=== PATIENT | female | born 1940 | race Caucasian/White ===

== ENCOUNTER 2023-03-30 08:43 | Outpatient (CLI) | payer MEDICARE, SELFPAY ==
--- NOTE | ~2023-03-30 | DEXA_ITS ---
Bone Density Report Name: NASIR GORDON Age: 83 Sex: Female Ethnicity: White Date of : 1940 Indication: postmenopausal; screening for osteoporosis; height loss; rheumatoid arthritis; Referring Provider: LIZ PHELAN Study: Bone densitometry was performed. Exam Date: March 30, 2023 Accession number: [id number] Bone Density: Region BMD T-score Z-score Classification AP Spine(L1-L4) 1.091 0.4 3.2 Normal Femoral Neck (Left) 0.656 -1.7 0.7 Osteopenia Total Hip (Left) 0.750 -1.6 0.7 Osteopenia Femoral Neck (Right) 0.719 -1.2 1.3 Osteopenia Total Hip (Right) 0.781 -1.3 1.0 Osteopenia Total Hip Mean 0.766 -1.5 0.9 Osteopenia World Health Organization criteria for BMD impression classify patients as: Normal (T-score at or above -1.0), Osteopenia (T-score between -1.0 and -2.5), or Osteoporosis (T-score at or below -2.5). 10-year Fracture Risk(1): Major Osteoporotic Fracture 19% Hip Fracture 5.8% Reported Risk Factors: [place] (), Neck BMD=0.656, BMI=26.9, rheumatoid arthritis (1) FRAX(R) Version 3.08. Fracture probability calculated for an untreated patient. Fracture probability may be lower if the patient has received treatment. Previous Exams: Region Exam Age BMD T-score BMD Change BMD Change Date g/cm2 vs Baseline vs Previous AP Spine (L1-L4) 03/30/2023 83 1.091 0.4 -0.012 (-1.1%) -0.012 (-1.1%) 03/14/2018 77 1.102 0.5 Total Hip(Left) 03/30/2023 83 0.750 -1.6 -0.089 (-10.7% -0.089 (-10.7% 03/14/2018 77 0.840 -0.8 Total Hip(Right) 03/30/2023 83 0.781 -1.3 -0.117 (-13.1% -0.117 (-13.1% 03/14/2018 77 0.898 -0.4 *Denotes significance at 95% confidence level, LSC for AP Spine = 0.022 g/cm2, LSC for Total Hip = 0.027 g/cm2 Clinical Information Provided by Patient: Has rheumatoid arthritis Has used the following medications: Vitamin D Has the following medical conditions: hypothyroidism Patient maximum height was 60.5 Menopause Age: 49 No regular weight bearing exercise Drinks caffeinated beverages Onset of menses at age 10 Number of children 4 Impression: The patient has low bone mass, based on the Left Femoral Neck T-score. The patient has an estimated ten-year risk of hip fracture of 5.8% and an estimated ten-year risk of major fracture of 19%, based on the WHO FRAX algorithm. The BMD for the Total Hip(Left) decreased, changing by -10.7% since the last DXA exam. The BMD for t
== END 2023-03-30 08:44 | disposition home or self-care (01) ==
PROVIDERS: PCP Family Medicine; Visit Provider Family Medicine
DX: Z78.0 Asymptomatic menopausal state (principal); M85.852 Other specified disorders of bone density and structure, left thigh; M85.851 Other specified disorders of bone density and structure, right thigh
CPT/HCPCS: 77080

== ENCOUNTER 2023-09-11 11:15 | Outpatient (CLI) | payer MEDICARE, SELFPAY ==
[2023-09-11 13:27] LABS: Thyroid Stimulating Hormone 0.908 uIU/mL (0.465-4.680)
== END 2023-09-11 11:16 | disposition home or self-care (01) ==
LOC: ANHLAB 11:16
PROVIDERS: PCP Family Medicine; Visit Provider Internal Medicine Hematology & Oncology
DX: E03.9 Hypothyroidism, unspecified (principal); E11.9 Type 2 diabetes mellitus without complications
CPT/HCPCS: 36415; 84443

== ENCOUNTER 2024-04-01 12:48 | Emergency (ER) | payer MEDICARE, SELFPAY ==
--- NOTE | ~2024-04-01 | XR_ITS ---
XR knee RT min 4V Ordering provider: Anisa Arias MD History: . RT KNEE PAIN AFTER FALL TODAY, MEDIAL BRUSING AND SWELLING . Comparison: September 28, 2004 FINDINGS: BONES: No acute fracture or dislocation. Osteopenia of the bones. JOINT SPACES: Calcifications seen in the medial and lateral menisci. Joint space is normal. SOFT TISSUES: Normal. IMPRESSION: No acute osseous abnormality right knee. Chondrocalcinosis. Reviewed, dictated and finalized at location A.
--- NOTE | ~2024-04-01 | XR_ITS ---
EXAMINATION: XR finger 3rd RT min 2V DATE: 04/01/2024 14:01 INDICATION: Right hand third digit pain. TECHNIQUE: 4 views of right hand third digit were obtained. COMPARISON: None. FINDINGS: Alignment is normal. There is a punctate calcification palmar to base of third distal phala nx. There is mild osteoarthritis of the third proximal interphalangeal joint and moderate osteoarthri tis of distal interphalangeal joint. IMPRESSION: 1. Punctate calcification palmar to base of third distal phalanx, which may be an acute avulsion frac ture or a chronic finding. 2. Polyarticular osteoarthritis. Reviewed, dictated and finalized at location A. IMPRESSION: 1. Punctate calcification palmar to base of third distal phalanx, which may be an acute avulsion fracture or a chronic finding. 2. Polyarticular osteoarthritis.
[2024-04-01 12:58] VITALS: BP 152/60; PULSE 87; RESP 16; TEMP 36.8; O2SAT 100
--- NOTE | 2024-04-01 13:34 | ED.LOWEXIN ---
HPI - Extremity Injury (Lower) General Chief Complaint: Extremity Injury, Lower Stated Complaint: Fall, Rt Knee pain Time Seen by Provider: 04/01/24 13:12 Source: patient and family Mode of arrival: ambulatory Limitations: no limitations History of Present Illness HPI Narrative: Patient presents with right knee pain and swelling after a fall. She is on warfarin/coumadin. No history of surgery or injury to this leg. She has not yet taken anything for pain. No paresthesias. She also notes she has arthritis and injured her right 3rd digit. Related Data Home Medications Medication Instructions Recorded Confirmed cholecalciferol (vitamin D3) 25 1,000 unit PO DAILY 06/22/19 03/30/24 mcg (1,000 unit) capsule (Vitamin D3) warfarin 2.5 mg tablet 2.5 mg PO HS 06/22/19 03/30/24 lactobacillus combination no.8 3 3,000 mmu cells PO DAILY 07/31/19 03/30/24 billion cell capsule (Adult Probiotic) famotidine 40 mg tablet 20 mg PO BID 11/25/23 03/30/24 Allergies Allergy/AdvReac Type Severity Reaction Status Date / Time omeprazole Allergy Unknown Unknown Verified 03/30/24 13:02 [facility] Past Medical History Medical History Afib (Unknown) Anticoagulation adequate with anticoagulant therapy (Unknown) Arthritis BMI 26.0-26.9,adult CKD (chronic kidney disease) stage 4, GFR 15-29 ml/min Diabetes mellitus DM renal manif type II History of kidney stones History of rectal polyps HTN (hypertension) 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 Hypolipidemia Hypothyroid Nephrolithiasis Surgical History Surgical History H/O: hysterectomy History of back surgery History of foot surgery right Hx of tonsillectomy Family History Family History Mother Family history of suicide Patient's mother is Father Patient's father is Sibling Patient's brother is Other Family history of allergic disorder Family history of cardiovascular disease Family history of malignant neoplasm Hypertension Social History Social History (Reviewed 01/08/24 @ 10:41 by ERIN Nowak Smoking status: Never smoker Second hand tobacco smoke exposure: Yes Alcohol intake: never Substance use: never Substance use type: does not use Do You Feel Safe in your Home?: Yes Lack of Transportation: No Lack of Food: Never True Current Housing: I Have Housing Concerned About Future Housing: No Difficulty Paying Gas/Electric Bills: No Difficulty Paying for Meds: No Currently Unemployed: No Education: High School Diploma/GED Difficulty w/ Childcare or Family Care: No Living arrangements: with family Occupation/Education: retired 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 HEAD: Normocephalic, atraumatic. EYES: Non injected, non icteric ENT: Nares clear, no rhinorrhea or epistaxis. NECK: Supple. CHEST: Speaking in full sentences. No respiratory distress. HEART: Regular rate and rhythm. . ABDOMEN: Soft, nondistended. EXTREMITIES: Normal range of motion. Swelling/edema over right knee where she has an effusion. Ecchymosis at anterior surface of right knee. 5/5 strength bilateral ankle dorsiflexion/plantarflexion, knee flexion/extension, hip flexion/adduction/abduction. Limited ROM of 3rd digts but adjacent digits also have difficulty with full range of motion, particularly flexion. SKIN: Warm, dry. Abrasions over right hand digits 3 and 4. NEURO: No focal deficits. Alert and oriented x3. PSYCH: Normal mood and affect.
[2024-04-01] MEDS: HYDROcodone/acetaminophen (*CRX) 5-325 MG TABLET 1 TAB PO (14:06)
[2024-04-01 15:37] VITALS: BP 131/49; PULSE 72; RESP 15; TEMP 36.4; O2SAT 100
== END 2024-04-01 15:39 | disposition home or self-care (01) ==
PROVIDERS: Emergency Provider Student in an Organized Health Care Education/Training Program; PCP Family Medicine
DX: M11.261 Other chondrocalcinosis, right knee (principal); M15.9 Polyosteoarthritis, unspecified; S62.632A Displaced fracture of distal phalanx of right middle finger, initial encounter for closed fracture; I48.91 Unspecified atrial fibrillation; E78.5 Hyperlipidemia, unspecified; E03.9 Hypothyroidism, unspecified; E11.22 Type 2 diabetes mellitus with diabetic chronic kidney disease; I12.9 Hypertensive chronic kidney disease with stage 1 through stage 4 chronic kidney disease, or unspecified chronic kidney disease; N18.4 Chronic kidney disease, stage 4 (severe); Z79.01 Long term (current) use of anticoagulants; W19.XXXA Unspecified fall, initial encounter
CPT/HCPCS: 29130; 73140; 73564; 99284; A9270

== ENCOUNTER 2024-04-29 07:26 | Emergency (ER) | payer MEDICARE, SELFPAY ==
--- NOTE | ~2024-04-29 | XR_ITS ---
EXAMINATION: XR lumbar spine 2-3V DATE: 04/29/2024 08:04 INDICATION: Low back pain post fall 4 weeks prior TECHNIQUE: Anteroposterior and lateral views of the lumbar spine, and cone-down lateral view of the l umbosacral junction were obtained. COMPARISON: CT dated 05/27/2019 FINDINGS: 15 degree lumbar dextroscoliosis. Age-indeterminate L2 superior endplate compression fracture with 20 % left central vertebral body height loss. Remaining vertebral body heights are normal. Severe disc h eight loss at L5-S1. Moderate disc height loss at T10-T11 and L3-L4 and mild disc height loss of the remaining levels from T11-T12 through L4-L5. Multilevel severe lumbar facet osteoarthritis with left side and lower lumbar predominant. Sacral arches are intact. Mild bilateral sacroiliac and hip osteoa rthritis. Cholecystectomy clips in right upper quadrant. IMPRESSION: 1. 15 degrees lumbar dextro scoliosis with severe lower lumbar predominant spondylosis. 2. Age-indeterminate L2 superior endplate compression fracture. Reviewed, dictated and finalized at location B. IMPRESSION: 1. 15 degrees lumbar dextro scoliosis with severe lower lumbar predominant spon dylosis. 2. Age-indeterminate L2 superior endplate compression fracture.
--- NOTE | ~2024-04-29 | US_ITS ---
EXAMINATION: US venous doppler LE RT DATE: 04/29/2024 08:29 INDICATION: Right lower limb swelling. TECHNIQUE: Grayscale ultrasound images without and with compression and Doppler ultrasound images of the right lower extremity veins were obtained. COMPARISON: None. FINDINGS: The visualized portions of right common femoral vein, profunda (deep) femoral vein, femoral vein, pop liteal vein, peroneal veins, posterior tibial veins, and greater saphenous vein outflow are patent. T here is a hematoma in the right thigh measuring 2.3 cm by greater than 6 cm. IMPRESSION: 1. No deep venous thrombosis. 2. Hematoma in the right thigh. Reviewed, dictated and finalized at location A.
[2024-04-29 07:35] VITALS: BP 153/52; PULSE 60; RESP 18; TEMP 36.6; O2SAT 100
--- NOTE | 2024-04-29 09:24 | ED.LOWEXIN ---
HPI - Extremity Injury (Lower) General Chief Complaint: Extremity Injury, Lower Stated Complaint: right leg after fall 4 weeks ago Time Seen by Provider: 04/29/24 07:33 History of Present Illness HPI Narrative: The patient is an 84-year-old female who presents ER with pain and swelling to right leg. She had a fall 1 month ago. She was evaluated without fracture. She continues to have some discomfort swelling. She is on Coumadin. She also has had some achiness and right low back. She has been taking Tylenol with minimal improvement in her pain. Related Data Home Medications Medication Instructions Recorded Confirmed cholecalciferol (vitamin D3) 25 1,000 unit PO DAILY 06/22/19 03/30/24 mcg (1,000 unit) capsule (Vitamin D3) warfarin 2.5 mg tablet 2.5 mg PO HS 06/22/19 03/30/24 lactobacillus combination no.8 3 3,000 mmu cells PO DAILY 07/31/19 03/30/24 billion cell capsule (Adult Probiotic) famotidine 40 mg tablet 20 mg PO BID 11/25/23 03/30/24 Allergies Allergy/AdvReac Type Severity Reaction Status Date / Time omeprazole Allergy Unknown Unknown Verified 03/30/24 13:02 Review of Systems Review of Systems: All systems reviewed & are unremarkable except as noted in HPI and below Constitutional: Constitutional: Reports no additional constitutional complaints Musculoskeletal: Musculoskeletal: Denies arthralgias and Denies joint swelling Comments: Right-sided leg pain and swelling Integumentary/Breasts: Skin/Breast: Reports system reviewed and no additional complaints, except as docu PMFSH Past Medical History Medical History Afib (Unknown) Anticoagulation adequate with anticoagulant therapy (Unknown) Arthritis BMI 26.0-26.9,adult CKD (chronic kidney disease) stage 4, GFR 15-29 ml/min Diabetes mellitus DM renal manif type II History of kidney stones History of rectal polyps HTN (hypertension) 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 Hypolipidemia Hypothyroid Nephrolithiasis Surgical History Surgical History H/O: hysterectomy History of back surgery History of foot surgery right Hx of tonsillectomy Family History Family History Mother Family history of suicide Patient's mother is Father Patient's father is Sibling Patient's brother is Other Family history of allergic disorder Family history of cardiovascular disease Family history of malignant neoplasm Hypertension Social History Social History Smoking status: Never smoker Second hand tobacco smoke exposure: Yes Alcohol intake: never Substance use: never Substance use type: does not use Do You Feel Safe in your Home?: Yes Lack of Transportation: No Lack of Food: Never True Current Housing: I Have Housing Concerned About Future Housing: No Difficulty Paying Gas/Electric Bills: No Difficulty Paying for Meds: No Currently Unemployed: No Education: High School Diploma/GED Difficulty w/ Childcare or Family Care: No Living arrangements: with family Occupation/Education: retired 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 HEAD: Normocephalic, atraumatic. CHEST: Clear to auscultation. No respiratory distress. HEART: Regular rate and rhythm. Normal peripheral pulses. EXTREMITIES: Normal range of motion. Swelling of the right leg from the distal thigh down to the foot. Old bruising right anterior thigh. No tenderness knee. SKIN: Warm, dry, no
[2024-04-29] MEDS: HYDROcodone/acetaminophen (*CRX) 5-325 MG TABLET 1 TAB PO (09:48)
== END 2024-04-29 09:53 | disposition home or self-care (01) ==
PROVIDERS: Emergency Provider Emergency Medicine; PCP Family Medicine
DX: S70.11XA Contusion of right thigh, initial encounter (principal); Z79.01 Long term (current) use of anticoagulants; I48.91 Unspecified atrial fibrillation; E11.22 Type 2 diabetes mellitus with diabetic chronic kidney disease; I12.9 Hypertensive chronic kidney disease with stage 1 through stage 4 chronic kidney disease, or unspecified chronic kidney disease; N18.4 Chronic kidney disease, stage 4 (severe); E03.9 Hypothyroidism, unspecified; Z90.710 Acquired absence of both cervix and uterus
CPT/HCPCS: 72100; 93971; 99284; A9270